=== PATIENT | male | born 1990 | race Caucasian/White ===

== ENCOUNTER 2017-12-07 23:14 | Emergency (ER) | payer SELFPAY | END 2017-12-08 00:40 | disposition left against medical advice (07) | LOC: FTE 23:14 | DX: Z53.21 Procedure and treatment not carried out due to patient leaving prior to being seen by health care provider (principal) ==

== ENCOUNTER 2017-12-08 02:52 | Emergency (ER) | payer OTHER ==
[2017-12-08] MEDS: DIPHTH/TET/ACEL PERTUSS (ADULT) 0.5 ML VIAL IM* (03:44)
== END 2017-12-08 04:10 | disposition home or self-care (01) ==
LOC: FTE 02:52
DX: S30.811A Abrasion of abdominal wall, initial encounter (principal); W01.0XXA Fall on same level from slipping, tripping and stumbling without subsequent striking against object, initial encounter; Y92.9 Unspecified place or not applicable; Z23 Encounter for immunization
CPT/HCPCS: 90471; 90715; 99283-25